=== PATIENT | male | born 1970 | race American Indian/Alaskan Native ===

== ENCOUNTER 2017-08-10 18:17 | Emergency (ER) | payer SELFPAY ==
[2017-08-10 19:02] VITALS: BP 172/107
[2017-08-10] MEDS ORDERED: ASPIRIN PO ONE (22:13)
[2017-08-10] MEDS ORDERED: BABY ASPIRIN ONE (22:15)
[2017-08-10 22:48] LABS: Basophils % (Auto) 0.5 % (0.0-1.8); Hematocrit 48.1 % (35.5-45.6); Hemoglobin 16.7 gm/dl (11.8-15.2); Lymphocytes # (Auto) 1.8 K/mm3 (1.2-5.4); Lymphocytes % (Auto) 21.5 % (13.4-35.0); Mean Corpuscular HGB Conc 35 % (32-34); Mean Corpuscular Hemoglobin 29 pg (28-32); Mean Corpuscular Volume 83 fl (84-94); Monocytes # (Auto) 0.4 K/mm3 (0.0-0.8); Monocytes % (Auto) 4.9 % (0.0-7.3); Platelet Count 222 K/mm3 (140-440); Red Blood Count 5.78 M/mm3 (3.65-5.03); Red Cell Distribution Width 14.5 % (13.2-15.2)
[2017-08-10 23:01] LABS: BUN/Creatinine Ratio 13; Blood Urea Nitrogen 10 mg/dL (9-20); Calcium 10.3 mg/dL (8.4-10.2); Hemolysis Index 3
--- NOTE | 2017-08-11 02:05 | Emergency Department Report ---
ED General Adult HPI - General Chief complaint: Headache Stated complaint: headache and CP Time Seen by Provider: 08/11/17 00:36 Source: patient Mode of arrival: Ambulatory Limitations: No Limitations - History of Present Illness Initial comments: Mr. Doty is a pleasant 47 yo male who presents with headache, abdominal pain and chest fluttering. He has been to the ED 3 times previously this week. Symptoms began on Monday. He felt flushed with a warm feeling. Henry lightheaded. He has had LUQ pain and heartburn. Dx'd with GERD at [facility] ER. rx: zantac and amlodipine. Seen at [facility] twice yesterday. Normal CT abdomen. Rx: nexium and stool softener He comes to our ER for symptoms of malaise, abdominal discomfort. Has mild headache frontal throbbing. Hx of daily marijuana use since age 17. Poor diet due to job which requires travel [place]. He is a traffic controller. Hx of tobacco abuse. - Related Data Allergies Allergy/AdvReac Type Severity Reaction Status Date / Time No Known Allergies Allergy Unverified 08/10/17 18:49 ED Review of Systems ROS: Stated complaint: headache and CP Other details as noted in HPI Comment: All other systems reviewed and negative Constitutional: denies: fever, malaise Respiratory: denies: cough Cardiovascular: chest pain ED Past Medical Hx - Past Medical History Hx Hypertension: Yes Hx GERD: Yes - Social History Smoking Status: Current Every Day Smoker Substance Use Type: Marijuana ED Physical Exam - General Limitations: No Limitations General appearance: alert, in no apparent distress - Head Head exam: Present: atraumatic, normocephalic - Eye Eye exam: Present: normal appearance - ENT ENT exam: Present: mucous membranes moist - Neck Neck exam: Present: normal inspection. Absent: tenderness, meningismus - Respiratory Respiratory exam: Present: normal lung sounds bilaterally. Absent: respiratory distress, wheezes, rhonchi - Cardiovascular Cardiovascular Exam: Present: regular rate, normal rhythm. Absent: systolic murmur, diastolic murmur, rubs, gallop - GI/Abdominal GI/Abdominal exam: Present: soft, normal bowel sounds. Absent: distended, tenderness, guarding, rebound - Rectal Rectal exam: Present: deferred - Extremities Exam Extremities exam: Present: normal inspection - Back Exam Back exam: Present: normal inspection - Neurological Exam Neurological exam: Present: alert, oriented X3 - Psychiatric Psychiatric exam: Present: normal affect, normal mood - Skin Skin exam: Present: warm, dry, intact, normal color. Absent: rash ED Course Vital Signs 08/10/17 18:49 Temperature 98.3 F Pulse Rate 92 H Respiratory 17 Rate Blood Pressure 172/107 O2 Sat by Pulse 98 Oximetry ED Medical Decision Making - Lab Data Result diagrams: 08/10/17 22:25 08/10/17 22:25 Laboratory Results - last 24 hr 08/10/17 08/10/17 08/11/17 22:25 22:25 01:16 WBC 8.4 RBC 5.78 H Hgb 16.7 H Hct 48.1 H MCV 83 L MCH 29 MCHC 35 H RDW 14.5 Plt Count 222 Lymph % (Auto) 21.5 [place] % (Auto) 4.9 Eos % (Auto) 0.0 Baso % (Auto) 0.5 Lymph # 1.8 [place] # 0.4 Eos # 0.0 Baso # 0.0 Seg Neutrophils % 73.1 H Seg Neutrophils # 6.1 Sodium 135 L Potassium 4.6 Chloride 95.3 L Carbon Dioxide 24 Anion Gap 20 BUN 10 Creatinine 0.8 Estimated GFR > 60 BUN/Creatinine Ratio 13 Glucose 118 H Calcium 10.3 H Troponin T < 0.010 < 0.010 Vital Signs - 24 hr 08/10/17 18:49 Temperature 98.3 F Pulse Rate 92 H Respiratory 17 Rate Blood Pressure 172/107 O2 Sat by Pulse 98 Oximetry - EKG Data 08/11/17 02:08 EKG obtained at 2216 Sinus tachycardia rate of 100 [address] intervals no ST-T signs of ischemia - Medical Decision Making Mr. Doty presents with hypertensive urgency and GERD. Patient has never previously been ill. He is understandably concerned. No indication of CVA, ICH or ACS. He is receiving appropriate therapy with Nexium and amlodipine. He understands that he needs primary care for definitive treatment. No evidence of end organ damage from hypertension. I recommended cessation of marijuana and tobacco abuse. Critical care attestation.: If time is entered above; I have spent that time in minutes in the direct care of this critically ill patient, excluding procedure time. ED Disposition Clinical Impression: Hypertensive urgency, GERD (gastroesophageal reflux disease) Disposition: - TO HOME OR SELFCARE Is pt being admited?: No Does the pt Need Aspirin: No Condition: Stable Instructions: Hypertension (ED), Gastroesophageal Reflux Disease (ED) Referrals: NEHA BURRELL MD [Staff Physician] - 3-5 Days [facility] [Outside] - 3-5 Days Forms: Work/School Release Form(ED)
== END 2017-08-11 02:59 | disposition home or self-care (01) ==
LOC: ED 18:17
DX: I16.0 Hypertensive urgency (principal); K21.9 Gastro-esophageal reflux disease without esophagitis; I10 Essential (primary) hypertension; F17.200 Nicotine dependence, unspecified, uncomplicated; F12.10 Cannabis abuse, uncomplicated
CPT/HCPCS: 36415; 80048; 82962; 84484; 85025; 93005; 93010; 99283